=== PATIENT | female | born 1995 | race Caucasian/White ===

== ENCOUNTER 2019-08-21 04:41 | Emergency (ER) | payer SELFPAY ==
--- NOTE | 2019-08-21 05:33 | ER Document Report ---
ED General - General Chief Complaint: Possible Overdose Stated Complaint: OVERDOSE Time Seen by Provider: 08/21/19 05:25 Mode of Arrival: Medic Information source: Patient, Emergency Med Personnel TRAVEL OUTSIDE OF THE [place] IN LAST 30 DAYS: No - HPI Onset: Other - unknown onset Quality of pain: No pain Severity: None Associated symptoms: None Exacerbated by: Other - nothing Relieved by: Other - nothing Similar symptoms previously: No Recently seen / treated by doctor: No Notes: 23 year old female with no significant PMH brought in by EMS due to concern of possible SI. The patient admits she has been drinking and she is intoxicated in the ER. Apparently the patient's boyfriend called the police and EMS since he was concerned the patient was trying to harm herself. The patient's boyfriend told the police and EMS that the patient tried to overdose of Motrin, Benadryl and Amoxicillin. EMS apparently found empty bottles of Motrin, Benadryl, and A moxicillin at her home. The patient is denying SI in the ER and she says she is only here because her boyfriend told the police and EMS a lie. - Related Data Allergies/Adverse Reactions: No Known Allergies Allergy (Unverified 08/21/19 05:07) Past Medical History - General Information source: Patient, Emergency Med Personnel - Social History Smoking Status: Never Smoker Frequency of alcohol use: Occasional Drug Abuse: None Lives with: Family Family History: Reviewed & Not Pertinent Patient has suicidal ideation: No Patient has homicidal ideation: No Pulmonary Medical History: Reports: Hx Asthma Review of Systems - Review of Systems Constitutional: Other - alcohol intoxication EENT: No symptoms reported Cardiovascular: No symptoms reported Respiratory: No symptoms reported Gastrointestinal: No symptoms reported Genitourinary: No symptoms reported Female Genitourinary: No symptoms reported Musculoskeletal: No symptoms reported Skin: No symptoms reported Hematologic/Lymphatic: No symptoms reported Neurological/Psychological: Other - alcohol abuse, possible suicidal ideation/gesture Physical Exam - Vital signs Vitals: Resp 14 08/21/19 04:47 - Notes Notes: GENERAL: Well-appearing, well-nourished and in no acute distress, obviously intoxicated. HEAD: Atraumatic, normocephalic. EYES: Pupils equal round and reactive to light, extraocular movements intact, sclera anicteric, conjunctiva are normal. ENT: TMs normal, nares patent, oropharynx clear without exudates. Moist mucous membranes. NECK: Normal range of motion, supple without lymphadenopathy or JVD. LUNGS: Breath sounds clear to auscultation bilaterally and equal. No wheezes rales or rhonchi. HEART: Regular rate and rhythm without murmurs, rubs or gallops. ABDOMEN: Soft, nontender, normoactive bowel sounds. No guarding, no rebound. No masses appreciated. EXTREMITIES: Normal range of motion, no pitting or edema. No clubbing or cyanosis. NEUROLOGICAL: Cranial nerves II through XII grossly intact. Normal speech, normal gait. PSYCH: Normal mood, normal affect. Patient is intoxicated but she is denying SI at this time. Patient says she took Motrin, Benadryl and Amoxicillin since she has had cold symptoms but her BF told police and EMS she did this in an attempt to harm herself. SKIN: Warm, Dry, normal turgor, no rashes or lesions noted. Course - Re-evaluation Re-evalutation: 08/21/19 05:37 The patient is intoxicated and she was brought to the ER by EMS due to a concern of a suicidal gesture (taking Motrin, Benadryl, and Amoxicillin). The patient denying wanting to want to harm herself and she says she only took these medications since she has been having cold symptoms. Plan it to take out an IVC, let the patient sober up, and to re-evaluate the patient once she is sober and once her story can be corroborated. Patient signed out to oncoming ER doctor at shift change since her work up was pending and she was still intoxicated - Vital Signs Vital signs: Temp Pulse Resp BP Pulse Ox 22 H 148/99 H 98 08/21/19 05:01 08/21/19 05:01 08/21/19 05:01 Discharge - Discharge Clinical Impression: Alcohol abuse Condition: Stable Disposition: PSYCH HOSP/UNIT
[2019-08-21] MEDS ORDERED: KETAMINE HCL INJ 500 MG/10 ML VIAL IV ONE (06:36)
[2019-08-21] MEDS ORDERED: KETAMINE HCL INJ 500 MG/10 ML VIAL ONE (06:37)
[2019-08-21] MEDS ORDERED: KETAMINE HCL INJ 500 MG/10 ML VIAL IM ONE (06:40)
[2019-08-21] MEDS ORDERED: LORAZEPAM INJ 2 MG/1 ML VIAL IM PRN (06:54)
[2019-08-21 07:23] LABS: ABSOLUTE BASOPHILS # (AUTO) 0.1 10^3/uL (0.0-0.2); ABSOLUTE EOSINOPHILS # (AUTO) 0.3 10^3/uL (0.0-0.6); ABSOLUTE LYMPHOCYTES (AUTO) 3.9 10^3/uL (0.5-4.7); ABSOLUTE MONOCYTES (AUTO) 0.6 10^3/uL (0.1-1.4); ABSOLUTE NEUT (AUTO) 6.6 10^3/uL (1.7-8.2); BASOPHILS % (AUTO) 0.6 % (0-2); EOSINOPHILS % (AUTO) 2.7 % (0-6); HEMATOCRIT 40.8 % (36.0-47.0); HEMOGLOBIN 13.5 g/dL (12.0-15.5); LYMPHOCYTES % (AUTO) 33.7 % (13-45); MEAN CORPUSCULAR HEMOGLOBIN 27.9 pg (27.0-33.4); MEAN CORPUSCULAR HGB CONC 33.2 g/dL (32.0-36.0); MEAN CORPUSCULAR VOLUME 84 fl (80-97); MONOCYTES % (AUTO) 5.4 % (3-13); PLATELET COUNT 346 10^3/uL (150-450); RED BLOOD COUNT 4.86 10^6/uL (3.72-5.28); RED CELL DISTRIBUTION WIDTH 13.3 % (11.5-14.0); SEGMENTED NEUTROPHILS % (AUTO) 57.6 % (42-78); TOTAL CELLS COUNTED % (AUTO) 100 %; WHITE BLOOD COUNT 11.5 10^3/uL (4.0-10.5)
[2019-08-21] MEDS ORDERED: ONDANSETRON HCL INJ/PF 4 MG/2 ML SDV IM ONE (07:37)
[2019-08-21 07:40] LABS: ALBUMIN 4.7 g/dL (3.5-5.0); ALCOHOL 127 mg/dL (NONE DETECTED); ALKALINE PHOSPHATASE 106 U/L (38-126); ANION GAP 17 (5-19); ASPARTATE AMINO TRANSFERASE 29 U/L (14-36); BILIRUBIN,DIRECT 0.3 mg/dL (0.0-0.4); BILIRUBIN,TOTAL 0.3 mg/dL (0.2-1.3); BLOOD UREA NITROGEN 8 mg/dL (7-20); CALCIUM 9.7 mg/dL (8.4-10.2); CARBON DIOXIDE 19 mmol/L (22-30); CHLORIDE 110 mmol/L (98-107); GLUCOSE 99 mg/dL (75-110); POTASSIUM 3.7 mmol/L (3.6-5.0); TOTAL PROTEIN 8.3 g/dL (6.3-8.2)
[2019-08-21 07:41] LABS: ACETAMINOPHEN < 10 ug/mL (10-30); SALICYLATE < 1.0 mg/dL (2.0-20.0)
--- NOTE | 2019-08-21 07:50 | PSYCHOLOGICAL NOTE ---
Psych Note - Psych Note Date seen by psych provider: 08/21/19 Time seen by psych provider: 07:00 Psych Note: Patient is a 21 year old female who presents to ED via EMS. Per chart review, boyfriend contacted law enforcement because patient endorsed suicidal ideation after an argument. Patient is somewhat linear in thought. Patient presents as somewhat confused. Patient denies SI/HI. Patient states she took an "appropriate" amount of the medications. Patient states she is intoxicated. Patient was administered Ketamine by ED physician. Patient is tearful. Patient states she is "scared" and that is why she ran from law enforcement. Patient states she was involved with the [employer] in her youth, so she is fearful of "manager business information." Updated: lab results are not suggestive of an overdose attempt. Updated 14:43- Check in on patient conducted. Patient maintains she did not attempt suicide or endorse suicidal ideation in any way. Patient states she had an alcohol problem in her youth. Patient states the last time she was intoxicated was "a couple of months ago." Discussed continued alcohol use. Patient stated she will never consume alcohol again because of this situation. Clinician stated it was not only the ETOH that resulted in the IVC and hospitalization. Clinician encouraged patient to seek mental health services and substance abuse treatment. Discussed the SI, and again patient denies. Patient stated her boyfriend became upset because she attempted to end the relationship. Patient described a dysfunctional relationship wit boyfriend (lack of communication, he was/is when they began the relationship, cheated and gave patient an STI). Patient stated the relationship is over as this was the last straw. Patient expressed concern this would result in her being fired from her job. Clinician stated a work note could be provided. Clinician obtained collateral information from patient's boyfriend, Julio. Patient stated he's still "fuzzy" about the events "right now." Boyfriend states he's "going crazy" because he found the pills he accused patient of taking. Boyfriend stated, "she don't need to be there 'cause she ain't done nothin." Boyfriend expressed remorse for the situation. Impression/Plan: Patient is recommended for rescind of IVC and is cleared from acute psychiatric services. Patient denies suicidal and homicidal ideations. Patient denies auditory and visual hallucinations. There is no behavior that suggests patient is responding to internal stimuli. Patient was initially brought to the ED via EMS after reporting to law enforcement that patient engaged in suicidal gesture. Patient was upset upon arrival and attempted to inform staff that she did not take the pills as boyfriend reported. Patient expressed she did not believe that anyone was listening to her because she was intoxicated. Boyfriend subsequently (approximately 11 hours later) stated patient did not attempt suicide, and that he found the pills in the home. Dr. Syed was consulted on the care and management of this patient; attending physician is in agreement with recommendations and disposition.
[2019-08-21 08:09] LABS: APPEARANCE,URINE CLEAR; BILIRUBIN,URINE NEGATIVE (NEGATIVE); COLOR,URINE STRAW; GLUCOSE, URINE NEGATIVE (NEGATIVE); KETONES,URINE NEGATIVE (NEGATIVE); LEUKOCYTE ESTERASE,URINE NEGATIVE (NEGATIVE); NITRITE,URINE NEGATIVE (NEGATIVE); PROTEIN,URINE NEGATIVE (NEGATIVE); URINE SPECIFIC GRAVITY 1.006; UROBILINOGEN,URINE NEGATIVE mg/dL (<2.0)
[2019-08-21 08:23] LABS: URINE AMPHETAMINES SCREEN NEGATIVE; URINE BARBITURATES SCREEN NEGATIVE; URINE BENZODIAZEPINES SCREEN NEGATIVE; URINE COCAINE SCREEN NEGATIVE; URINE MARIJUANA (THC) SCREEN NEGATIVE; URINE METHADONE SCREEN NEGATIVE; URINE PHENCYCLIDINE SCREEN NEGATIVE
--- NOTE | 2019-08-21 09:59 | EKG REPORT ---
SEVERITY:- NORMAL ECG - SINUS RHYTHM : Confirmed by: Zana Mora MD 21-Aug-2019 09:58:29
--- NOTE | 2019-08-21 17:42 | ER Document Report ---
Doctor's Note Notes: 08/21/19 17:39 I did evaluate to the patient who reports that last night she drank a lot of liquor. Patient reports that she does live with her significant other and that she was attempting to break it things off with him. Patient reports she never admitted to suicidal or homicidal thoughts or ideations. Patient was brought into the emergency department because her significant other stated she was suicidal but earlier today admitted to the mental health staff that this was made up and she never said this. Patient reports she also lives with her 2 children. Patient reports that she does not drink alcohol and when she does it is rare. She reports that she feels comfortable going home despite having her significant other there. She reports she is not mad or upset with him and that she does feel safe but that they will have to figure out the living situation as they are going to break up. Patient was cleared by mental health. I agree with this assessment. Patient stable for discharge.
[2019-08-21 18:09] VITALS: BP 125/78
== END 2019-08-21 18:15 | disposition home or self-care (01) ==
LOC: ER 04:41
DX: F10.129 Alcohol abuse with intoxication, unspecified (principal)
CPT/HCPCS: 93005; 99285; 96372; 96374; 36415; 80307 ×4; 85025; 80053; 81001; 93010; J3490; J2405

== ENCOUNTER 2020-06-15 07:32 | Day surgery (SDC) | payer MEDICAID ==
[~2020-06-15 07:32] MED LIST: PROPOFOL INJ 200 MG/20 ML VIAL IV ONE
--- NOTE | 2020-06-15 10:38 | Operative Report ---
Operative Report DATE OF SURGERY: 06/15/20 Operative Report: The risk, benefits and alternatives of the procedure including the risks of bleeding, perforation requiring surgery have been explained to the patient in detail and informed consent has been obtained. Patient is taken back to the endoscopy suite and placed in left, lateral decubital position. Timeout was called. Propofol medication is administered. Rectal examination is done which did not reveal any masses, tears or fissures. An Olympus videoscope was introduced into the patient's rectum. Scope was then carefully advanced all the way to the cecum. Cecum was identified by the usual anatomical landmarks including the ileocecal valve as well as the appendiceal office. Photodocumentation is obtained. Scope was then. Sequentially pulled back via the various segments of the colon including the ascending colon, hepatic flexure, transverse colon, splenic flexure, descending colon finding to the rectosigmoid portions of the colon. Retroflexion maneuver is performed. The risks benefits and alternatives of the procedure explained to the patient in detail and informed consent is obtained.A GIF Olympus video scope was inserted into the patient's mouth and hypopharynx ,the esophagus is identified intubated and insufflated ,the scope was then advanced through the esophagus stomach and duodenum, retroflexion maneuver is done ,the esophagus stomach and first and second portions of the duodenum examined PREOPERATIVE DIAGNOSIS: Change in bowel habits. Gastroesophageal reflux disease POSTOPERATIVE DIAGNOSIS: Random biopsies at the terminal ileum rule out Crohn's disease. Internal hemorrhoids. Gastritis status post biopsy. Esophagitis status post biopsy OPERATION: Colonoscopy with biopsy. EGD with biopsy SURGEON: SANDRA CUELLAR ANESTHESIA: LMAC TISSUE REMOVED OR ALTERED: As noted above. COMPLICATIONS: None. ESTIMATED BLOOD LOSS: None. INTRAOPERATIVE FINDINGS: As noted above. PROCEDURE: Patient tolerated the procedure well. No immediate postprocedure complications are noted. Patient is discharged in good condition. Discharge date 06/15/2020. Discharge diet: Regular. Discharge activity: Regular. 2 to 3-week follow-up to discuss findings. Patient is instructed to call the office or proceed to the emergency room should there be any further problems or questions. Wait on the pathology.
[2020-06-15 11:42] VITALS: BP 124/62
== END 2020-06-15 09:05 | disposition home or self-care (01) ==
LOC: END 07:32
PROVIDERS: ATTEND Internal Medicine Gastroenterology
DX: K29.50 Unspecified chronic gastritis without bleeding (principal); K20.90 Esophagitis, unspecified without bleeding; K64.8 Other hemorrhoids; F17.210 Nicotine dependence, cigarettes, uncomplicated; E66.9 Obesity, unspecified
CPT/HCPCS: 43239; 45380; 88342 ×2; 88305 ×2; 00813; J2704; 813